=== PATIENT | female | born 1965 | race Caucasian/White ===

== ENCOUNTER → 2016-05-30 | Outpatient (CLI) | payer MEDICAID ==
[~2016-05-30] VITALS: Ht 167.6 cm; Wt 57.0 kg
[~2016-05-30] MED LIST: ALCL15CR TP; BUPIVACAINE/PF-EPI 0.25% 1:200K ONE; CEPH-368 PO; CHOL200012 PO; CLON-365 PO; CLONAZEPAM PO; FENTANYL PF 250 MCG/5ML ONE; FLUO20CA8 PO; FOLI-17 PO; KETAMINE 10 MG/ML, 20ML ONE; LACTATED RINGERS 1,000 ML IV SCH; LIDOCAINE 1%, 2ML ONE; LIDOCAINE 1%, 2ML SQ PRN; MELO-184 PO; METH2.5T PO; MIDAZOLAM 1 MG/ML, 2ML ONE; MULT-6 PO; MULTIVITAMIN PO; NAPR220C2 PO; NAPR220T77 PO; OXYC-302 PO; OXYC1TAB7 PO; PLEASE ENTER HEIGHT AND WEIGHT MC SCH; PRED1DRO EACHEYE; PROZAC PO; TAMO10TA PO; VITAMIN D PO; VITAMIN E PO
[2016-05-30 11:31] VITALS: BP 134/89
[2016-05-30 11:44] LABS: DAU SCREEN DISCLAIMER
[2016-05-30 12:13] LABS: ASPARTATE AMINO TRANSFERASE 18 U/L (15-37); BLOOD UREA NITROGEN 12 mg/dL (7-18)
== END | disposition home or self-care (01) ==
LOC: OUT 11:11 → EDSTATUS 12:00
PROVIDERS: ATTEND Plastic Surgery
DX: Z85.3 Personal history of malignant neoplasm of breast (principal); Z90.13 Acquired absence of bilateral breasts and nipples
CPT/HCPCS: 36415; 80053; 80307; J2250; J3010

== ENCOUNTER 2016-09-19 13:07 | Day surgery (SDC) | payer MEDICAID ==
[~2016-09-19] VITALS: Ht 167.6 cm; Wt 57.5 kg
[~2016-09-19 13:07] MED LIST changes: +BIOT5CAP3 PO; -BUPIVACAINE/PF-EPI 0.25% 1:200K ONE; +CEFAZOLIN 1,000 MG ONE; +DEXAMETHASONE 4 MG/ML, 1ML ONE; -FENTANYL PF 250 MCG/5ML ONE; -KETAMINE 10 MG/ML, 20ML ONE; +KETOROLAC 30 MG/1 ML ONE; -LACTATED RINGERS 1,000 ML IV SCH; -LIDOCAINE 1%, 2ML ONE; -LIDOCAINE 1%, 2ML SQ PRN; -MIDAZOLAM 1 MG/ML, 2ML ONE; +ONDANSETRON 2MG/ML, 2ML ONE; -PLEASE ENTER HEIGHT AND WEIGHT MC SCH; +PROPOFOL 10 MG/ML, 20ML ONE
[2016-09-19] MEDS ORDERED: LACTATED RINGERS 1,000 ML IV SCH (13:33)
[2016-09-19 13:37] VITALS: BP 155/97
[2016-09-19 13:52] LABS: DAU SCREEN DISCLAIMER
[2016-09-19] MEDS ORDERED: FENTANYL PF 100 MCG/2ML ONE (15:07)
[2016-09-19] MEDS ORDERED: MIDAZOLAM 1 MG/ML, 2ML ONE (15:07)
[2016-09-19] MEDS ORDERED: BUPIVACAINE/PF-EPI 0.5% 1:200K ONE (15:13)
[2016-09-19] MEDS ORDERED: PROMETHAZINE 25 MG/ML, 1ML IV PRN (16:30)
[2016-09-19] MEDS ORDERED: hydrALAzine 20 MG/ML, 1ML IV PRN (16:30)
[2016-09-19] MEDS ORDERED: METOPROLOL 1 MG/ML, 5ML IV PRN (16:30)
[2016-09-19] MEDS ORDERED: ACETAMINOPHEN 325 MG TABLET PO PRN (16:30)
[2016-09-19] MEDS ORDERED: MEPERIDINE/PF 25MG/0.5ML IVPush PRN (16:30)
[2016-09-19] MEDS ORDERED: FENTANYL PF 100 MCG/2ML IV PRN (16:30)
[2016-09-19] MEDS ORDERED: OXYcodone 5 MG/5 ML ORAL.SOL UDC PO PRN (16:30)
[2016-09-19] MEDS ORDERED: HYDROmorphone 1 MG/ML, 1ML IV PRN (16:30)
[2016-09-19] MEDS ORDERED: OXYcodone 5 MG/5 ML ORAL.SOL UDC ONE (16:42)
[2016-09-19] MEDS ORDERED: MEPERIDINE/PF 25MG/0.5ML ONE (16:42)
== END 2016-09-19 18:30 ==
LOC: OUT 13:07
PROVIDERS: ATTEND Plastic Surgery
DX: C50.912 Malignant neoplasm of unspecified site of left female breast (principal); C50.911 Malignant neoplasm of unspecified site of right female breast; F17.210 Nicotine dependence, cigarettes, uncomplicated
CPT/HCPCS: 11970; 80307; C1789; J0690; J1100; J1885; J2175; J2250; J2405; J2704; J3010; J7120

== ENCOUNTER 2016-10-25 20:10 | Emergency (ER) | payer MEDICAID ==
[~2016-10-25] VITALS: Ht 165.1 cm; Wt 59.4 kg
[~2016-10-25 20:10] MED LIST changes: -CEFAZOLIN 1,000 MG ONE; -CHOL200012 PO; +CHOL200074 PO; -DEXAMETHASONE 4 MG/ML, 1ML ONE; -KETOROLAC 30 MG/1 ML ONE; -MELO-184 PO; +MELO15TA24 PO; -ONDANSETRON 2MG/ML, 2ML ONE; -PROPOFOL 10 MG/ML, 20ML ONE
[2016-10-25 20:11] VITALS: BP 143/85
[2016-10-25] MEDS ORDERED: ONDANSETRON ODT 4 MG PO ONE (20:30)
[2016-10-25] MEDS ORDERED: OXYcodone/APAP 5/325MG TABLET PO ONE (20:30)
[2016-10-25] MEDS ORDERED: OXYcodone/APAP 5/325MG TABLET ONE (20:34)
[2016-10-25] MEDS ORDERED: ONDANSETRON ODT 4 MG ONE (20:34)
== END 2016-10-25 22:14 | disposition home or self-care (01) ==
LOC: ED 20:31
DX: N64.4 Mastodynia (principal); N80.9 Endometriosis, unspecified
CPT/HCPCS: 99283; Q0162

== ENCOUNTER → 2016-11-10 | Outpatient (CLI) | payer MEDICAID | END | disposition home or self-care (01) | LOC: CFH 09:17 | PROVIDERS: ATTEND Internal Medicine Hematology & Oncology | DX: Z13.820 Encounter for screening for osteoporosis (principal); M85.88 Other specified disorders of bone density and structure, other site; C50.311 Malignant neoplasm of lower-inner quadrant of right female breast; T14.8 Other injury of unspecified body region | CPT/HCPCS: 77080 ==